=== PATIENT | female | born 1945 | race Caucasian/White ===

== ENCOUNTER 2022-03-28 19:43 | Emergency (ER) | payer MEDICARE, BC ==
[2022-03-28] MEDS ORDERED: Bacitracin Oint 1 GM U/D Packet TOP ONE (20:09)
[2022-03-28] MEDS ORDERED: Lidocaine 1% with EPINEPHrine 1:100,000 50 ML MDV INFILT STA (20:09)
== END 2022-03-28 22:02 | disposition home or self-care (01) ==
LOC: JP.ED 19:43
DX: S01.81XA Laceration without foreign body of other part of head, initial encounter (principal); Z79.01 Long term (current) use of anticoagulants; Z79.899 Other long term (current) drug therapy; W10.9XXA Fall (on) (from) unspecified stairs and steps, initial encounter
CPT/HCPCS: 12001; 12011; 70450; 99281; 99283